=== PATIENT | female | born 1995 | race American Indian/Alaskan Native ===

== ENCOUNTER 2017-03-24 22:41 | Emergency (ER) | payer SELFPAY ==
[2017-03-24 23:21] LABS: Basophils % (Auto) 0.9 % (0.0-1.8); Eosinophils % (Auto) 4.7 % (0.0-4.3); Hematocrit 37.6 % (30.3-42.9); Hemoglobin 12.6 gm/dl (10.1-14.3); Mean Corpuscular HGB Conc 34 % (30-34); Mean Corpuscular Hemoglobin 29 pg (28-32); Mean Corpuscular Volume 86 fl (79-97); Platelet Count 308 K/mm3 (140-440); Red Blood Count 4.39 M/mm3 (3.65-5.03); White Blood Count 9.2 K/mm3 (4.5-11.0)
--- NOTE | 2017-03-25 02:47 | Ultrasound Report ---
FINAL REPORT PROCEDURE: US OB TRANSVAGINAL TECHNIQUE: Real-time transvaginal sonography of the uterus, placenta, amniotic fluid, adnexa, and fetus was performed with image documentation. Measurements were obtained to determine age/size. M-mode Doppler was used to document heartbeat. CPT 09066 HISTORY: VAG BLEEDING/PREG COMPARISON: No prior studies are available for comparison. FINDINGS: There is no evidence of intrauterine . The left ovary measures 3.9 x 2.1 x 2.6 centimeters. There is a heterogeneous hypoechoic mass suggesting hemorrhagic cyst measuring 2.2 x 1.6 x 1.8 centimeters. There is a questionable left adnexal ectopic measuring 2 x 1.8 x 1.5 centimeters. There is no peripheral blood flow. There is no yolk sac or pole. This could also be an involuting cystic follicle. Right ovary is unremarkable. There is minimal free pelvic fluid. IMPRESSION: There is no demonstrated intrauterine . There is no ovarian torsion. Right ovary is unremarkable. Probable left adnexal hemorrhagic cyst and involuting cyst with remote possibility of ectopic not excluded. Correlation with serial beta HCG measurements suggested.
--- NOTE | 2017-03-25 02:48 | Ultrasound Report ---
FINAL REPORT PROCEDURE: US OB transabdominal TECHNIQUE: Real-time transabdominal sonography of the uterus, placenta, amniotic fluid, adnexa, and fetus was performed with image documentation. HISTORY: VAG BLEEDING/PREG COMPARISON: No prior studies are available for comparison. FINDINGS: There is no evidence of intrauterine . The left ovary measures 3.9 x 2.1 x 2.6 centimeters. There is a heterogeneous hypoechoic mass suggesting hemorrhagic cyst measuring 2.2 x 1.6 x 1.8 centimeters. There is a questionable left adnexal ectopic measuring 2 x 1.8 x 1.5 centimeters. There is no peripheral blood flow. There is no yolk sac or pole. This could also be an involuting cystic follicle. Right ovary is unremarkable. There is minimal free pelvic fluid. IMPRESSION: There is no demonstrated intrauterine . There is no ovarian torsion. Right ovary is unremarkable. Probable left adnexal hemorrhagic cyst and involuting cyst with remote possibility of ectopic not excluded. Correlation with serial beta HCG measurements suggested.
[2017-03-25 04:56] LABS: Bilirubin,Urine NEG (Negative); Blood,Urine LG (Negative); Ketones,Urine NEG (Negative); Leukocyte Esterase,Urine NEG (Negative); Mucus,Urine FEW /HPF; Nitrite,Urine NEG (Negative); Protein,Urine <15 mg/dL mg/dL (Negative); Urobilinogen,Urine < 2.0 mg/dL (<2.0)
--- NOTE | 2017-03-25 04:56 | Emergency Department Report ---
HPI - General Chief Complaint: Vaginal Bleeding Time Seen by Provider: 03/25/17 03:53 - HPI HPI: This is a 21-year-old [place] female who presents the emergency department from home with complaint of sharp abdominal cramping and some mild vaginal bleeding that started last night. The patient believes herself that she is as she had a positive home test last night. They took this test secondary to a missed menstrual cycle in February. The patient took a dose of Excedrin this morning for her cramping pain. She does not have an INTERVENTIONAL RADIOLOGY TECH. With this she is . She otherwise has a past medical history of anemia and asthma. The vaginal bleeding is "more than spotting but not a lot." She denies any fever, nausea, vomiting, back pain, dysuria or vaginal discharge. No recent travel or sick contacts at home. ED Past Medical Hx - Past Medical History Previous Medical History?: Yes Hx Asthma: Yes Additional medical history: ANEMIA - Surgical History Past Surgical History?: No - Social History Smoking Status: Never Smoker Substance Use Type: None - Medications Home Medications: Home Medications Medication Instructions Recorded Confirmed Last Taken Type Albuterol Sulfate [Ventolin HFA] 2 puff IH Q4H PRN #1 hfa.aer.ad 07/13/16 Unknown Rx Cetirizine HCl [ZyrTEC] 10 mg PO DAILY #30 tab.chew 07/13/16 Unknown Rx predniSONE [Deltasone] 50 mg PO QDAY #5 tab 07/13/16 Unknown Rx Vit-Fe Fumar-FA [ 1 tab PO QDAY #30 tablet 03/25/17 Unknown Rx Vitamin] ED Review of Systems ROS: Stated complaint: PREG/BLEEDING/ABD PAIN Other details as noted in HPI Comment: All other systems reviewed and negative Constitutional: denies: chills, fever Eyes: denies: eye pain, eye discharge, vision change ENT: denies: ear pain, throat pain Respiratory: denies: cough, shortness of breath, wheezing Cardiovascular: denies: chest pain, palpitations Gastrointestinal: abdominal pain. denies: nausea, vomiting Genitourinary: other (vaginal bleeding). denies: urgency, dysuria, discharge Musculoskeletal: denies: back pain, joint swelling, arthralgia Skin: denies: rash, lesions Neurological: denies: headache, weakness, paresthesias Physical Exam - Physical Exam Vital Signs: Vital Signs 03/24/17 03/25/17 22:48 04:15 Temperature 98.2 F 98.0 F Pulse Rate 77 72 Respiratory 20 14 Rate Blood Pressure 128/93 Blood Pressure 122/66 [Left] O2 Sat by Pulse 100 99 Oximetry Physical Exam: GENERAL: The patient is well-developed well-nourished. HEENT: Normocephalic. Atraumatic. Extraocular motions are intact. Patient has moist mucous membranes. Pupils equal reactive to light bilaterally. NECK: Supple. Trachea is midline. CHEST/LUNGS: Clear to auscultation. There is no respiratory distress noted. HEART/CARDIOVASCULAR: Regular. There is no tachycardia. There is no gallop rub or murmur. ABDOMEN: Abdomen is soft, nontender. Patient has normal bowel sounds. There is no abdominal distention. SKIN: Skin is warm and dry. NEURO: The patient is awake, alert, and oriented. The patient is cooperative. The patient has no focal neurologic deficits. The patient has normal speech. MUSCULOSKELETAL: There is no tenderness or deformity. There is no limitation range of motion. There is no evidence of acute injury. ED Course Vital Signs 03/24/17 03/25/17 22:48 04:15 Temperature 98.2 F 98.0 F Pulse Rate 77 72 Respiratory 20 14 Rate Blood Pressure 128/93 Blood Pressure 122/66 [Left] O2 Sat by Pulse 100 99 Oximetry - Consultations Consultation #1: I spoke with the INTERVENTIONAL RADIOLOGY TECH publications designer, Dr. Erica Zuniga, to discuss the patient's presentation, beta hCG of 900 and ultrasound with possibility of left adnexal ectopic . Dr. Zuniga feels that the beta hCG level of 900 is too early to show any definitive intrauterine or ectopic. The recommendation is to follow-up in 48 hours for a repeat beta hCG. If the level is decreasing, the patient is most likely having a miscarriage. If the hormone level is increasing, a repeat ultrasound to be done to see if there is a definitive intrauterine or definitive ectopic . 03/25/17 04:55 ED Medical Decision Making - Lab Data Result diagrams: 03/24/17 22:58 - Radiology Data Radiology results: report reviewed Transvaginal/ ultrasound shows no demonstrated intrauterine . There is no ovarian torsion. Right ovary is unremarkable. Probable left adnexal hemorrhagic cyst an involuting cyst with remote possibility of ectopic not excluded. - Medical Decision Making 21-year-old female presents with a positive home test and some cramping and bleeding that started last night. Patient's labs are mostly unremarkable. Beta hCG is only 900. Ultrasound shows no definitive intrauterine and a remote possibility of left-sided ectopic adnexal . As per the consultation sec., I spoke with Dr. Zuniga, who recommends follow-up in 48 hours for repeat beta hCG. If the level is decreasing, patient is most likely having a miscarriage. If patient's level is increasing, then a repeat ultrasound should be done to see if there is any definitive is uterine versus definitive ectopic . - Differential Diagnosis , miscarriage, ectopic, UTI, fibroids Critical Care Time: No Critical care attestation.: If time is entered above; I have spent that time in minutes in the direct care of this critically ill patient, excluding procedure time. ED Disposition Clinical Impression: Threatened miscarriage, Abdominal cramping Qualifiers: Weeks of gestation: less than 8 weeks Qualified Code(s): Z3A.01 - Less than 8 weeks gestation of Disposition: DISCHARGED TO HOME OR SELFCARE Is pt being admited?: No Condition: Stable Instructions: Threatened Miscarriage (ED), (ED) Additional Instructions: Please return to the emergency department in 48 hours for a repeat hormone level and possibly a repeat ultrasound. If the hormone level is decreasing, it is likely that you have had a miscarriage. If the hormone level is increasing, a repeat ultrasound will be done to further evaluate you for a early intrauterine or an ectopic. It is imperative that you follow- up. I have started you on vitamins. Return to the emergency department sooner with any worsening of your symptoms or any acute distress. Prescriptions: Vit-Fe Fumar-FA [ Vitamin] 1 tab PO QDAY #30 tablet Referrals: PRIMARY CAREMD [Primary Care Provider] - JOHAN Time of Disposition: 05:09
[2017-03-25 05:52] VITALS: BP 124/84
== END 2017-03-25 06:10 | disposition home or self-care (01) ==
LOC: ED 22:41
DX: O20.0 Threatened abortion (principal); R10.9 Unspecified abdominal pain; J45.909 Unspecified asthma, uncomplicated; D64.9 Anemia, unspecified; Z3A.01 Less than 8 weeks gestation of pregnancy
CPT/HCPCS: 36415; 76801; 76817; 81001; 84702; 85025; 99284

== ENCOUNTER 2017-03-27 14:14 | Emergency (ER) | payer SELFPAY ==
[2017-03-27 15:09] VITALS: BP 117/84
--- NOTE | 2017-03-27 15:10 | Emergency Department Report ---
Chief Complaint: Vaginal Bleeding Stated Complaint: BLEEDING/PREG Time Seen by Provider: 03/27/17 15:08 - HPI History of Present Illness: PT states she is and bleeding. PT states she was seen for this two days ago and told to come back - ROS Review of Systems: + vaginal bleeding + passing clots - Exam Physical Exam: PT looks well, non toxic gcs 15 exam not completed in triage MSE screening note: Focused history and physical exam performed. Due to findings the following was ordered: labs, us ED Disposition for MSE Condition: Stable
[2017-03-27 15:49] LABS: Basophils % (Auto) 1.1 % (0.0-1.8); Hematocrit 37.7 % (30.3-42.9); Hemoglobin 12.4 gm/dl (10.1-14.3); Mean Corpuscular HGB Conc 33 % (30-34); Mean Corpuscular Hemoglobin 28 pg (28-32); Mean Corpuscular Volume 87 fl (79-97); Platelet Count 317 K/mm3 (140-440); Red Blood Count 4.36 M/mm3 (3.65-5.03); Red Cell Distribution Width 14.8 % (13.2-15.2); White Blood Count 7.2 K/mm3 (4.5-11.0)
[2017-03-27 16:09] LABS: Anion Gap 16 mmol/L; BUN/Creatinine Ratio 21.66; Blood Urea Nitrogen 13 mg/dL (7-17); Calcium 9.6 mg/dL (8.4-10.2); Carbon Dioxide 26 mmol/L (22-30); Chloride 102.6 mmol/L (98-107); Glucose 84 mg/dL (65-100); Potassium 4.5 mmol/L (3.6-5.0); Sodium 140 mmol/L (137-145)
--- NOTE | 2017-03-27 17:54 | Emergency Department Report ---
ED HPI - General Chief complaint: Vaginal Bleeding Stated complaint: BLEEDING/PREG Time Seen by Provider: 03/27/17 15:08 Source: patient Mode of arrival: Ambulatory Limitations: No Limitations - History of Present Illness MD Complaint: vaginal bleeding -: Gradual Quality: cramping Consistency: constant Improves with: none Worsens with: none Associated symptoms: vaginal bleeding. denies: nausea/vomiting, vaginal discharge, abdominal pain, dysuria, headache, malaise, dysparuenia (seen 48 h ago and told to come back to check HCG) - Related Data Previous Rx's Medication Instructions Recorded Last Taken Type Albuterol Sulfate [Ventolin HFA] 2 puff IH Q4H PRN #1 hfa.aer.ad 07/13/16 Unknown Rx Cetirizine HCl [ZyrTEC] 10 mg PO DAILY #30 tab.chew 07/13/16 Unknown Rx predniSONE [Deltasone] 50 mg PO QDAY #5 tab 07/13/16 Unknown Rx Vit-Fe Fumar-FA [ 1 tab PO QDAY #30 tablet 03/25/17 Unknown Rx Vitamin] Allergies Allergy/AdvReac Type Severity Reaction Status Date / Time No Known Allergies Allergy Unverified 07/13/16 16:19 ED Review of Systems ROS: Stated complaint: BLEEDING/PREG Other details as noted in HPI Comment: All other systems reviewed and negative ED Past Medical Hx - Past Medical History Hx Asthma: Yes Additional medical history: ANEMIA - Surgical History Past Surgical History?: No - Social History Smoking Status: Never Smoker Substance Use Type: None - Medications Home Medications: Home Medications Medication Instructions Recorded Confirmed Last Taken Type Albuterol Sulfate [Ventolin HFA] 2 puff IH Q4H PRN #1 hfa.aer.ad 07/13/16 Unknown Rx Cetirizine HCl [ZyrTEC] 10 mg PO DAILY #30 tab.chew 07/13/16 Unknown Rx predniSONE [Deltasone] 50 mg PO QDAY #5 tab 07/13/16 Unknown Rx Vit-Fe Fumar-FA [ 1 tab PO QDAY #30 tablet 03/25/17 Unknown Rx Vitamin] ED Physical Exam - General Limitations: No Limitations General appearance: alert, in no apparent distress - Head Head exam: Present: atraumatic, normocephalic - Eye Eye exam: Present: normal appearance - ENT ENT exam: Present: mucous membranes moist - Neck Neck exam: Present: normal inspection - Respiratory Respiratory exam: Present: normal lung sounds bilaterally. Absent: respiratory distress - Cardiovascular Cardiovascular Exam: Present: regular rate, normal rhythm. Absent: systolic murmur, diastolic murmur, rubs, gallop - GI/Abdominal GI/Abdominal exam: Present: soft, normal bowel sounds - Extremities Exam Extremities exam: Present: normal inspection - Back Exam Back exam: Present: normal inspection - Neurological Exam Neurological exam: Present: alert, oriented X3 - Psychiatric Psychiatric exam: Present: normal affect, normal mood - Skin Skin exam: Present: warm, dry, intact, normal color. Absent: rash ED Course Vital Signs 03/27/17 15:02 Temperature 98.6 F Pulse Rate 79 Respiratory 16 Rate Blood Pressure 117/84 O2 Sat by Pulse 100 Oximetry ED Medical Decision Making - Lab Data Result diagrams: 03/27/17 15:20 03/27/17 15:20 Critical care attestation.: If time is entered above; I have spent that time in minutes in the direct care of this critically ill patient, excluding procedure time. ED Disposition Clinical Impression: Threatened miscarriage Disposition: DISCHARGED TO HOME OR SELFCARE Is pt being admited?: No Does the pt Need Aspirin: No Condition: Good Instructions: Spontaneous Miscarriage (ED) Time of Disposition: 17:54
--- NOTE | 2017-03-27 18:49 | Ultrasound Report ---
FINAL REPORT PROCEDURE: Transabdominal pelvic ultrasound. TECHNIQUE: Real-time transabdominal sonography in multiple planes of pelvis was performed with image documentation. This examination was performed without Doppler. Vascular abnormalities, including ovarian torsion, will not be detectable without Doppler evaluation. CPT 65874 HISTORY: Vaginal bleeding. . COMPARISON: Pelvic ultrasound 03/24/2017. FINDINGS: The uterus measures 8.5 centimeters x 4.4 centimeters x 4.6 centimeters. The myometrium appears uniform. There are no uterine masses identified. The endometrial echo complex appears thin and measures 5.8 millimeters. There is no evidence of an intrauterine . Correlation with a quantitative beta HCG value is necessary. The left ovary appears normal in size. There is a complex cyst in the left ovary measuring 2.2 centimeters in maximum dimension. The right ovary is not definitely visualized. There is no fluid in the cul-de-sac. IMPRESSION: No evidence of an intrauterine . Small left ovarian complex cyst.
--- NOTE | 2017-03-27 18:55 | Ultrasound Report ---
FINAL REPORT PROCEDURE: Transvaginal pelvic ultrasound. TECHNIQUE: Real-time transvaginal sonography in multiple planes of the pelvis was performed with image documentation. This examination was performed without Doppler. Vascular abnormalities, including ovarian torsion, will not be detectable without Doppler evaluation. CPT 28189 HISTORY: Vaginal bleeding. COMPARISON: Pelvic ultrasound 03/24/2017. FINDINGS: The uterus has uniform echogenicity. There are no focal uterine masses. The endometrial echo complex is thin and uniform. There is no evidence of an intrauterine . The right ovary appears normal in size and contains small follicles. There is normal ovarian blood flow demonstrated by color flow imaging. The left ovary contains a complex cyst measuring 2.1 centimeters in maximum dimension. There is a rounded mass contiguous with the left ovary that appears more echogenic than the ovary. This mass measures approximately 1.6 centimeters x 1.6 centimeters x 1.0 centimeters. There could be a small gestational sac present. This finding is suspicious for a possible ectopic . Correlation with a quantitative beta HCG value is recommended. There is a tiny amount of free fluid in the cul-de-sac. IMPRESSION: Possible left ectopic . Definitely no evidence of an intrauterine .
== END 2017-03-27 18:04 | disposition home or self-care (01) ==
LOC: ED 14:14
DX: O20.0 Threatened abortion (principal); J45.909 Unspecified asthma, uncomplicated; D64.9 Anemia, unspecified; Z3A.00 Weeks of gestation of pregnancy not specified
CPT/HCPCS: 36415; 76801; 76817; 80048; 84702; 85025; 86900; 86901; 99284